=== PATIENT | female | born 1990 | race Hispanic/Latino ===

== ENCOUNTER 2020-03-04 21:06 | Emergency (ER) | payer OTHER ==
[~2020-03-04] VITALS: Ht 152.4 cm; Wt 76.2 kg
[~2020-03-04 21:06] MED LIST: DEPO-ESTRADIO5 MG/ML IM
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
[2020-03-04] MEDS ORDERED: ISIBLOOM 28 DA1 EACH PO (21:34)
== END 2020-03-04 22:46 | disposition home or self-care (01) ==
LOC: ED 21:06
DX: S46.912A Strain of unspecified muscle, fascia and tendon at shoulder and upper arm level, left arm, initial encounter (principal); S50.12XA Contusion of left forearm, initial encounter; V43.52XA Car driver injured in collision with other type car in traffic accident, initial encounter
CPT/HCPCS: 73030; 73090; 99284-25; A9270

== ENCOUNTER 2020-09-17 17:18 | Emergency (ER) | payer OTHER ==
[~2020-09-17] VITALS: Ht 152.4 cm; Wt 76.2 kg
[~2020-09-17 17:18] MED LIST changes: +ISIBLOOM 28 DA1 EACH PO
== END 2020-09-17 19:43 | disposition home or self-care (01) ==
LOC: ED 17:18
DX: M79.672 Pain in left foot (principal); Z79.899 Other long term (current) drug therapy
CPT/HCPCS: 73630; 99283-25

== ENCOUNTER 2022-09-24 06:42 | Emergency (ER) | payer BC ==
[~2022-09-24] VITALS: Ht 152.4 cm; Wt 76.2 kg
[2022-09-24] MEDS ORDERED: REGLAN10 MG PO (11:09)
== END 2022-09-24 11:39 | disposition home or self-care (01) ==
LOC: ED 06:42
DX: O21.0 Mild hyperemesis gravidarum (principal); O99.511 Diseases of the respiratory system complicating pregnancy, first trimester; J06.9 Acute upper respiratory infection, unspecified; Z3A.09 9 weeks gestation of pregnancy
CPT/HCPCS: 36415; 80048; 81001; 85025; 87502; 94640; 94664; 99284-25; J7030; U0003

== ENCOUNTER 2022-10-10 15:26 | Emergency (ER) | payer BC ==
[~2022-10-10] VITALS: Ht 152.4 cm; Wt 72.6 kg
[~2022-10-10 15:26] MED LIST changes: +REGLAN10 MG PO
--- OUTSIDE RECORDS SUMMARY | 2022-10-10 15:28 | XMS ---
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 Niki has no Care Guidelines for this patient. [facility] MO[facility] NOTE: Visits indicate total known visits. ED/C VISIT TRACKING (12 MO.) [facility] COMPLAINT: - 12WK PGRNT SHORTNESS OF BREATH 09/24/2022 06:[address] [facility] [place] TYPE: Emergency COMPLAINT: - COLD SYMPTOMS DIAGNOSES: - Contact with and (suspected) exposure to COVID-19 - 9 weeks gestation of - Acute upper respiratory infection, unspecified - Other specified diseases and conditions complicating - Diseases of the respiratory system complicating , first trimester - Mild hyperemesis gravidarum INPATIENT VISIT TRACKING (12 MO.) No inpatient visits to display in this time frame [id number]
[2022-10-10] MEDS ORDERED: TAMIFLU75 MG PO (18:13)
[2022-10-10] MEDS ORDERED: PROMETHAZINE HC25 M1 PO (18:13)
== END 2022-10-10 18:41 | disposition home or self-care (01) ==
LOC: ED 15:26
DX: O99.511 Diseases of the respiratory system complicating pregnancy, first trimester (principal); J10.1 Influenza due to other identified influenza virus with other respiratory manifestations; Z3A.12 12 weeks gestation of pregnancy; Z20.822 Contact with and (suspected) exposure to COVID-19
CPT/HCPCS: 87502; 99284; A9270; C9803; U0003

== ENCOUNTER 2023-04-05 12:54 | Inpatient (IN) | payer BC ==
[~2023-04-05] VITALS: Ht 152.4 cm; Wt 83.9 kg
[~2023-04-05 12:54] MED LIST changes: +PROMETHAZINE HC25 M1 PO; +TAMIFLU75 MG PO
--- NOTE | 2023-04-05 18:52 | PR ---
[facility] [address] [place], [place] [address] Signed Progress Notes IP Datetime Report Generated by CPN: 04/05/2023 18:52 PROGRESS NOTES: [id number] Impression: Normal Progression of Labor Plan: Continue Present Management; Anticipate Vaginal Delivery VITAL SIGNS: [id number] Vital Signs: Reviewed; Within Normal Limits VS Notable Details: Amnisure Positive EXAM: [id number] Dilatation: 4.0 Effacement: 80 Station: -1 Contractions: every 4 minutes MEMBRANES: [id number] Membranes Status: Ruptured Amniotic Fluid Color: Clear Comments: Comfortable with Epidural. Continue monitoring. Hopefully ready to start pushing soon. FETUS A: [id number] FHR Baseline: 135 Variability: Moderate 6-25bpm Accelerations: 15X15 Decelerations: None FHR Category: Category I Presentation: Vertex Comments on Fetus A: BPP = 8/8 FETUS B: [id number] Signing Physician: Michelle Moore MD Copies: ~ *Electronically Signed* 04/05/23 185 MICHELLE MOORE MD PATIENT NAME: CARLEE ROLAND PROGRESS NOTE DATE OF : 89 PHYSICIAN: MICHELLE MOORE MD RPT #: [id number] REPORT IS CONFIDENTIAL AND NOT TO BE RELEASED WITHOUT AUTHORIZATION
[2023-04-05 19:28] VITALS: BP 118/59
--- NOTE | 2023-04-06 13:40 | PR ---
[facility] [address] [place], [place] [address] Signed PP Progress Notes Datetime Report Generated by CPN: 04/06/2023 13:40 SUBJECTIVE: [id number] Pain: Within Normal Limits Nausea/Vomiting: Denies Vital Signs: [id number] Vital Signs: Reviewed; Within Normal Limits Abdomen/Uterus: Normal Lochia: Normal Extremities: Normal Exam Comments: PP Hgb/Hct = 8.7/27.2 IMPRESSION/PLAN/PROCEDURES: [id number] Impression: Normal Progression Other Impression: PP Anemia Plan: Continue Present Management Procedures: None Progress Notes: Doing well, without complaint, has mild cough still, but no SOB or chest pain. Continue Paxlovid Will plan oral Fe on discharge Signing Physician: Michelle Moore MD Copies: ~ *Electronically Signed* 04/06/23 1340 MICHELLE MOORE MD PATIENT NAME: CARLEE ROLAND PROGRESS NOTE DATE OF : [birth year] PHYSICIAN: MICHELLE MOORE MD RPT #: [id number] REPORT IS CONFIDENTIAL AND NOT TO BE RELEASED WITHOUT AUTHORIZATION
--- NOTE | 2023-04-07 13:35 | PR ---
[facility] [address] [place] [address] Signed PP Progress Notes Datetime Report Generated by CPN: 04/07/2023 13:35 SUBJECTIVE: [id number] Pain: Within Normal Limits Nausea/Vomiting: Denies Vital Signs: [id number] Vital Signs: Reviewed; Within Normal Limits Abdomen/Uterus: Normal Lochia: Normal Extremities: Normal Exam Comments: PP Hgb/Hct = 8.7/27.2 IMPRESSION/PLAN/PROCEDURES: [id number] Impression: Normal Progression Other Impression: PP Anemia, Covid Positive Plan: Discharge Procedures: None Progress Notes: Doing well, feeling better, cough much improved, ready to go home. Signing Physician: Michelle Moore MD Copies: ~ *Electronically Signed* 04/07/23 3357 MICHELLE MOORE MD PATIENT NAME: CARLEE ROLAND PROGRESS NOTE DATE OF : 90 PHYSICIAN: MICHELLE MOORE MD RPT #: [id number] REPORT IS CONFIDENTIAL AND NOT TO BE RELEASED WITHOUT AUTHORIZATION
== END 2023-04-07 16:12 | disposition home or self-care (01) | DRG 805 ==
LOC: FBCO 12:54 → FBC 13:45
PROVIDERS: ADMIT General Practice; ATTEND General Practice
PROC: 00HU33Z Insertion of Infusion Device into Spinal Canal, Percutaneous Approach (ICD-10-PCS; principal; 2023-04-05)
PROC: 3E0R3BZ Introduction of Anesthetic Agent into Spinal Canal, Percutaneous Approach (ICD-10-PCS; 2023-04-05)
PROC: 10E0XZZ Delivery of Products of Conception, External Approach (ICD-10-PCS; 2023-04-05)
DX: O42.013 Preterm premature rupture of membranes, onset of labor within 24 hours of rupture, third trimester (principal); U07.1 COVID-19; Z37.0 Single live birth; O98.53 Other viral diseases complicating the puerperium; O90.81 Anemia of the puerperium; D64.9 Anemia, unspecified; Z3A.36 36 weeks gestation of pregnancy; Z67.10 Type A blood, Rh positive; Z90.49 Acquired absence of other specified parts of digestive tract
CPT/HCPCS: 36415; 59025; 84112; 85027; 86850; 86900; 86901; A9270; G0463; J2540; J2590

== ENCOUNTER 2024-06-23 06:29 | Inpatient (IN) | payer BC ==
[~2024-06-23] VITALS: Ht 152.4 cm; Wt 79.8 kg
[~2024-06-23 06:29] MED LIST changes: +CALCIUM CARBONATE 500 MG CHEW PO PRN; +LACTATED RINGER'S 1,000 ML IV SCH; +MAGNESIUM HYDROXIDE/AL HYDROX 30 ML CUP PO PRN
[2024-06-23] MEDS ORDERED: LACTATED RINGER'S 1,000 ML IV PRN (07:30)
[2024-06-23] MEDS ORDERED: ondansetron HCL 4 MG/2 ML VIAL IV PRN (07:30)
[2024-06-23] MEDS ORDERED: OXYTOCIN/0.9 % SODIUM CHLORIDE 30 UNITS/500 ML BAG IV SCH (07:30)
[2024-06-23] MEDS ORDERED: OXYTOCIN/DEXTROSE 5% 20 UNITS/100 ML BAG IV SCH (07:30)
[2024-06-23] MEDS ORDERED: HYDROmorphone HCL 1 MG/ML SYR IV ONE (08:00)
[2024-06-23] MEDS ORDERED: ACETAMINOPHEN 325 MG TAB PO PRN (08:15)
[2024-06-23] MEDS ORDERED: MAGNESIUM HYDROXIDE/AL HYDROX 30 ML CUP PO PRN (08:15)
[2024-06-23] MEDS ORDERED: CALCIUM CARBONATE 500 MG CHEW PO PRN (08:15)
[2024-06-23] MEDS ORDERED: OXYCODONE/APAP 5/325 TAB PO PRN (08:15)
[2024-06-23] MEDS ORDERED: IBUPROFEN 600 MG TAB PO PRN (08:15)
[2024-06-23] MEDS ORDERED: HYDROCORTISONE ACETATE 25 MG SUPP PR PRN (08:15)
[2024-06-23] MEDS ORDERED: MAGNESIUM HYDROXIDE 30 ML UDC PO PRN (08:15)
[2024-06-23] MEDS ORDERED: OXYTOCIN/0.9 % SODIUM CHLORIDE 500 ML IV SCH (08:15)
[2024-06-23] MEDS ORDERED: BENZOCAINE 60 ML AEROSOL TOP PRN (08:15)
[2024-06-23] MEDS ORDERED: WITCH HAZEL/GLYCERIN 1 EA PAD TOP PRN (08:15)
[2024-06-23] MEDS ORDERED: HYDROCODONE/ACETA 5/325 TAB PO PRN (08:15)
[2024-06-23 08:27] LABS: HEMATOCRIT 32.2 % (35.0-50.0); HEMOGLOBIN 10.4 g/dL (12.0-18.0); MCH 25.9 (27-36); MCHC 32.2 g/dl (30-36); MCV 80.3 fl (81-99); RDW 16.7 (10.5-15.0)
--- NOTE | 2024-06-23 08:28 | PR ---
[facility] [address] [place] [address] Signed PP Progress Notes Datetime Report Generated by CPN: 06/23/2024 08:28 SUBJECTIVE: [id number] Pain: Within Normal Limits Vital Signs: [id number] Vital Signs: Reviewed; Within Normal Limits Cardiovascular: Not Done Respiratory: Not Done Abdomen/Uterus: Abnormal Lochia: Normal Vulva/Perineum: Not Done Breasts: Not Done CVA Tenderness: Not Done Extremities: Normal Incision: Not Applicable Progress: Normal Exam Comments: Fundus firm, NT @ U-2. IMPRESSION/PLAN/PROCEDURES: [id number] Impression: Normal Progression Plan: Discharge Procedures: None Progress Notes: Doing well. She is ready for D/C. Signing Physician: Laura Sewell MD Copies: ~ *Electronically Signed* 06/23/24 0828 LAURA SEWELL MD PATIENT NAME: CARLEE ROLAND PROGRESS NOTE DATE OF : 90 PHYSICIAN: LAURA SEWELL MD RPT #: [id number] REPORT IS CONFIDENTIAL AND NOT TO BE RELEASED WITHOUT AUTHORIZATION
[2024-06-23] MEDS ORDERED: SENNOSIDES/DOCUSATE 1 EA TAB PO SCH (09:00)
[2024-06-23 09:11] LABS: ABO A; ANTIBODY SCREEN NEGATIVE; RH POSITIVE
[2024-06-23 13:51] LABS: AMPHETAMINES, URINE NEGATIVE (NEGATIVE); BARBITURATES, URINE NEGATIVE (NEGATIVE); BENZODIAZEPINE, URINE NEGATIVE (NEGATIVE); BUPRENORPHINE, URINE NEGATIVE (NEGATIVE); CANNABINOID, URINE NEGATIVE (NEGATIVE); COCAINE, URINE NEGATIVE (NEGATIVE); ECSTASY, URINE NEGATIVE (NEGATIVE); FENTANYL, URINE NEGATIVE (NEGATIVE); METHADONE, URINE NEGATIVE (NEGATIVE); OXYCODONE, URINE NEGATIVE (NEGATIVE); PHENCYCLIDINE, URINE NEGATIVE (NEGATIVE)
[2024-06-23 15:47] VITALS: BP 97/50
[2024-06-23 17:33] LABS: OPIATES, URINE POSITIVE (NEGATIVE)
[2024-06-24 05:34] LABS: HEMATOCRIT 29.1 % (35.0-50.0); HEMOGLOBIN 9.4 g/dL (12.0-18.0); MCH 25.7 (27-36); MCHC 32.1 g/dl (30-36); MCV 79.8 fl (81-99); RBC 3.65 M/ul (4.3-5.7); RDW 16.9 (10.5-15.0)
--- NOTE | 2024-06-24 13:40 | PR ---
[facility] [address] [facility] [place], [place] [address] Signed PP Progress Notes Datetime Report Generated by CPN: 06/24/2024 13:40 SUBJECTIVE: [id number] Pain: Within Normal Limits Nausea/Vomiting: Denies Flatus: Yes Bowel Movement: No Vital Signs: [id number] Vital Signs: Reviewed Cardiovascular: Normal Respiratory: Normal Abdomen/Uterus: Normal Lochia: Normal Vulva/Perineum: Not Done Breasts: Not Done CVA Tenderness: Normal Extremities: Normal Incision: Not Applicable Progress: Normal Exam Comments: Fundus firm U-2 nontender IMPRESSION/PLAN/PROCEDURES: [id number] Impression: Normal Progression Plan: Discharge Procedures: None Progress Notes: Pt seen and examined. Doing well. Ambulating, voiding, and tolerating full diet. Pain and lochia minimal. . Planning d/c home but awaiting recommendations from peds. Reviewed d/c instructions. Signing Physician: Key Coppola DO Copies: ~ *Electronically Signed* 06/24/24 6692 KEY COPPOLA (GLORIA) DO PATIENT NAME: RONALD PUGA,CARLEE SOWMYA PROGRESS NOTE DATE OF : 89 PHYSICIAN: KEY COPPOLA) DO RPT #: [id number] REPORT IS CONFIDENTIAL AND NOT TO BE RELEASED WITHOUT AUTHORIZATION
== END 2024-06-24 18:17 | disposition home or self-care (01) | DRG 807 ==
LOC: FBC 07:05
PROVIDERS: ADMIT Obstetrics & Gynecology; ATTEND Obstetrics & Gynecology
PROC: 10E0XZZ Delivery of Products of Conception, External Approach (ICD-10-PCS; principal; 2024-06-23)
DX: O62.3 Precipitate labor (principal); Z37.0 Single live birth; Z3A.39 39 weeks gestation of pregnancy; O24.420 Gestational diabetes mellitus in childbirth, diet controlled; O99.02 Anemia complicating childbirth
CPT/HCPCS: 36415; 80307; 85027; 86850; 86900; 86901; A9270; J1170; J7121

== ENCOUNTER 2025-02-01 00:50 | Emergency (ER) | payer BC ==
[~2025-02-01] VITALS: Ht 152.4 cm; Wt 74.9 kg
[~2025-02-01 00:50] MED LIST changes: -CALCIUM CARBONATE 500 MG CHEW PO PRN; -LACTATED RINGER'S 1,000 ML IV SCH; -MAGNESIUM HYDROXIDE/AL HYDROX 30 ML CUP PO PRN
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
[2025-02-01] MEDS ORDERED: [UNRECOGNIZED DRUG - OTHER] PO (01:08)
[2025-02-01] MEDS ORDERED: GUAIFENESIN/DEXTROMETHORPHAN 5 ML SYRUP PO ONE (01:15)
[2025-02-01 01:51] LABS: INFLUENZA B NAA NEGATIVE (NEGATIVE); RESPIRATORY SYNCYTIAL VIR NAA NEGATIVE (NEGATIVE)
[2025-02-01] MEDS ORDERED: [UNRECOGNIZED DRUG - OTHER] PO (02:34)
[2025-02-01] MEDS ORDERED: AZITHROMYCIN 250 MG HOME.PACK PO ONE (02:45)
[2025-02-01] MEDS ORDERED: ALBUTEROL SULFATE 8 GM HOME.PACK INH ONE (02:45)
[2025-02-01] MEDS ORDERED: INHALER, ASSIST DEVICES 1 EACH SPACER MISC ONE (02:45)
[2025-02-01 02:49] VITALS: BP 109/57
== END 2025-02-01 02:50 | disposition home or self-care (01) ==
LOC: ED 00:50
PROVIDERS: Family Medicine
DX: O99.512 Diseases of the respiratory system complicating pregnancy, second trimester (principal); J06.9 Acute upper respiratory infection, unspecified; Z3A.24 24 weeks gestation of pregnancy; Z79.899 Other long term (current) drug therapy
CPT/HCPCS: 87502; 94640; 94664; 99283; A9270; U0002

== ENCOUNTER 2025-05-12 10:50 | Inpatient (IN) | payer BC, OTHER ==
[~2025-05-12 10:50] MED LIST changes: +[UNRECOGNIZED DRUG - OTHER] PO; +[UNRECOGNIZED DRUG - OTHER] PO
[2025-05-12] MEDS ORDERED: OXYTOCIN/0.9 % SODIUM CHLORIDE 30 UNITS/500 ML BAG IV SCH (11:15)
[2025-05-12] MEDS ORDERED: PENICILLIN G POTASSIUM 5 MUNITS in SODIUM CHLORIDE 0.9% 100 ML IV ONE (11:15)
[2025-05-12] MEDS ORDERED: MAGNESIUM HYDROXIDE/AL HYDROX 30 ML CUP PO PRN ×2 (11:15→18:30)
[2025-05-12] MEDS ORDERED: TERBUTALINE SULFATE 1 MG/ML AMP SUB-Q PRN (11:15)
[2025-05-12] MEDS ORDERED: LACTATED RINGER'S 1,000 ML IV PRN (11:15)
[2025-05-12] MEDS ORDERED: LIDOCAINE HCL 1% 30 ML SDV INJ PRN (11:15)
[2025-05-12] MEDS ORDERED: CALCIUM CARBONATE 500 MG CHEW PO PRN ×2 (11:15→18:30)
[2025-05-12] MEDS ORDERED: PENICILLIN G POTASSIUM 2.5 MUNITS in DEXTROSE 5% 100 ML IV SCH ×2 (11:18→16:00)
[2025-05-12 11:44] LABS: MCH 23.1 PG (25.6-32.2); MCHC 30.8 g/dL (32.2-35.5); MCV 74.9 fL (79.4-94.8); RBC 4.38 M/uL (3.93-5.22)
[2025-05-12] MEDS ORDERED: ROPIVACAINE 0.2% 200 ML BAG ONE (11:52)
[2025-05-12] MEDS ORDERED: fentaNYL citrate 100 MCG/2 ML VIAL ONE (11:53)
[2025-05-12 12:06] LABS: AMPHETAMINES, URINE NEGATIVE (NEGATIVE); BARBITURATES, URINE NEGATIVE (NEGATIVE); BENZODIAZEPINE, URINE NEGATIVE (NEGATIVE); CANNABINOID, URINE NEGATIVE (NEGATIVE); COCAINE, URINE NEGATIVE (NEGATIVE); ECSTASY, URINE NEGATIVE (NEGATIVE); FENTANYL, URINE NEGATIVE (NEGATIVE); METHADONE, URINE NEGATIVE (NEGATIVE); OPIATES, URINE NEGATIVE (NEGATIVE); OXYCODONE, URINE NEGATIVE (NEGATIVE); PHENCYCLIDINE, URINE NEGATIVE (NEGATIVE)
[2025-05-12] MEDS ORDERED: SOD+POT BICARB/CITRIC ACID 2 EA TABLET.EFF ONE (12:07)
[2025-05-12] MEDS ORDERED: TERBUTALINE SULFATE 1 MG/ML AMP ONE (12:07)
[2025-05-12] MEDS ORDERED: LIDOCAINE HCL 1% 30 ML SDV ONE (12:07)
[2025-05-12 12:18] LABS: ABO A; ANTIBODY SCREEN NEGATIVE; RH POSITIVE
[2025-05-12 12:19] VITALS: BP 103/54
[2025-05-12] MEDS ORDERED: LACTATED RINGER'S 2,000 ML IV ONE (12:30)
[2025-05-12] MEDS ORDERED: LACTATED RINGER'S 500 ML IV PRN (12:30)
[2025-05-12] MEDS ORDERED: ePHEDrine sulfate 5 MG/ML SYRINGE IV PRN (12:30)
[2025-05-12] MEDS ORDERED: ROPIVACAINE 0.2% 200 ML BAG EPIDURAL SCH (12:30)
[2025-05-12] MEDS ORDERED: OXYTOCIN/0.9 % SODIUM CHLORIDE 500 ML IV SCH ×2 (16:45→18:30)
[2025-05-12] MEDS ORDERED: ACETAMINOPHEN 325 MG TAB PO PRN (18:30)
[2025-05-12] MEDS ORDERED: IBUPROFEN 600 MG TAB PO PRN (18:30)
[2025-05-12] MEDS ORDERED: MAGNESIUM HYDROXIDE 30 ML UDC PO PRN (18:30)
[2025-05-12] MEDS ORDERED: BENZOCAINE 60 ML AEROSOL TOP PRN (18:30)
[2025-05-12] MEDS ORDERED: WITCH HAZEL/GLYCERIN 1 EA PAD TOP PRN (18:30)
[2025-05-12] MEDS ORDERED: HYDROCORTISONE ACETATE 25 MG SUPP PR PRN (18:30)
[2025-05-12] MEDS ORDERED: LIDOCAINE 2% VISCOUS 6 ML SYR TOP ONE ×2 (18:30)
[2025-05-12] MEDS ORDERED: METHYLERGONOVINE MALEATE 0.2 MG/ML AMP IM ONE (18:45)
[2025-05-12] MEDS ORDERED: TRANEXAMIC ACID IN NACL,ISO-OS 1,000 MG/100 ML PIGGYBACK IV ONE (18:45)
[2025-05-12 19:01] LABS: IS CROSSMATCH COMPATIBLE
[2025-05-12 19:05] LABS: BASOPHILS 0.3 % (0.1-1.2); EOSINOPHILS 0.2 % (0.7-5.8); LYMPHOCYTES 18.8 % (19.3-51.7); MCH 23.3 PG (25.6-32.2); MCHC 30.0 g/dL (32.2-35.5); MCV 77.6 fL (79.4-94.8); MONOCYTES 7.3 % (4.7-12.5); NEUTROPHILS 72.6 % (34.0-71.1); RBC 4.60 M/uL (3.93-5.22)
[2025-05-12 19:13] LABS: INR 1.0 (0.80-1.30); PROTIME 12.8 Sec (11.2-14.2)
[2025-05-12] MEDS ORDERED: SENNOSIDES/DOCUSATE 1 EA TAB PO SCH (21:00)
[2025-05-13 05:40] LABS: BASOPHILS 0.3 % (0.1-1.2); EOSINOPHILS 0.5 % (0.7-5.8); LYMPHOCYTES 16.9 % (19.3-51.7); MCH 23.3 PG (25.6-32.2); MCHC 31.0 g/dL (32.2-35.5); MCV 75.3 fL (79.4-94.8); MONOCYTES 9.0 % (4.7-12.5); NEUTROPHILS 72.7 % (34.0-71.1); RBC 3.73 M/uL (3.93-5.22)
== END 2025-05-14 11:15 | disposition home or self-care (01) | DRG 807 ==
LOC: FBCO 10:50 → FBC 11:05
PROVIDERS: ADMIT Advanced Practice Midwife; ATTEND Advanced Practice Midwife
PROC: 10E0XZZ Delivery of Products of Conception, External Approach (ICD-10-PCS; principal; 2025-05-12)
PROC: 10907ZC Drainage of Amniotic Fluid, Therapeutic from Products of Conception, Via Natural or Artificial Opening (ICD-10-PCS; 2025-05-12)
PROC: 4A1HXCZ Monitoring of Products of Conception, Cardiac Rate, External Approach (ICD-10-PCS; 2025-05-12)
DX: O99.824 Streptococcus B carrier state complicating childbirth (principal); Z37.0 Single live birth; Z3A.38 38 weeks gestation of pregnancy; P03.82 Meconium passage during delivery; O72.1 Other immediate postpartum hemorrhage; O99.344 Other mental disorders complicating childbirth; F41.9 Anxiety disorder, unspecified
CPT/HCPCS: 01960; 36415; 80307; 85025; 85027; 85384; 85610; 85730; 86850; 86900; 86901; 86922; A9270; J2210; J2540; J2795; J3010; J7121